=== PATIENT | male | born 1960 | race Asian ===

== ENCOUNTER 2016-12-08 00:05 | Emergency (ER) | payer OTHER ==
[2016-12-08 00:36] VITALS: BP 104/62; PULSE 117; TEMP 98; BMI 21.1
[2016-12-08] MEDS ORDERED: IBUPROFEN 600 MG TABLET (FP) PO ONE (04:06)
[2016-12-08] MEDS ORDERED: IBUPROFEN 400 MG TABLET (FP) PO ONE (04:46)
== END 2016-12-08 00:55 | disposition home or self-care (01) ==
LOC: JER 00:05
DX: S93.401A Sprain of unspecified ligament of right ankle, initial encounter (principal); W01.0XXA Fall on same level from slipping, tripping and stumbling without subsequent striking against object, initial encounter; Y93.89 Activity, other specified; Y92.89 Other specified places as the place of occurrence of the external cause
CPT/HCPCS: 73610-TC-RT; 99281-25

== ENCOUNTER 2022-05-29 08:17 | Inpatient (IN) | payer OTHER ==
[2022-05-29 08:38] VITALS: BMI 21.9
[2022-05-29] MEDS ORDERED: SODIUM CHLORIDE 0.9% 500 ML INFUS.BAG IV ONE ×2 (08:51→12:00)
[2022-05-29] MEDS ORDERED: ONDANSETRON 4 MG/2 ML VIAL IVPUSH ONE (08:51)
[2022-05-29] MEDS ORDERED: FAMOTIDINE 20 MG/50 ML IVPB 20 MG/50 ML MG IVPB ONE ×2 (08:53→09:12)
[2022-05-29] MEDS ORDERED: FOLIC ACID 1 MG TABLET (FP) PO ONE (08:57)
[2022-05-29] MEDS ORDERED: THIAMINE HCL 200 MG/2 ML VIAL IVPB ONE (08:57)
[2022-05-29] MEDS ORDERED: THIAMINE HCL 200 MG/2 ML VIAL ONE (09:12)
[2022-05-29] MEDS ORDERED: ONDANSETRON 4 MG/2 ML VIAL ONE (09:12)
[2022-05-29] MEDS ORDERED: FOLIC ACID 1 MG TABLET (FP) ONE (09:12)
[2022-05-29 09:37] LABS: BASO % 0.4 % (0-2.0); HEMATOCRIT 28.4 % (35.4-49); HEMOGLOBIN 9.6 GM/dL (11.7-16.9); LYMPH % 5.7 % (8-40); MCH 34.1 pg (25.7-33.7); MCHC 33.7 g/dl (32.0-35.9); MEAN CELL VOLUME 101.3 fl (80-96); MEAN PLT VOLUME 8.6 fl (7.5-11.1); MONO % 6.3 % (3.8-10.2); NEUT % 87.6 % (42.8-82.8); PLATELET COUNT 103 10^3/uL (134-434); RBC 2.81 M/mm3 (4.00-5.60); RDW 15.1 % (11.9-15.9); WHITE BLOOD COUNT 11.1 K/mm3 (4.0-10.0)
[2022-05-29 09:41] LABS: VENOUS BASE EXCESS -3.7 mmol/L (-2-2); VENOUS PCO2 41.8 mmHg (38-52); VENOUS PH 7.337 (7.310-7.410)
[2022-05-29] MEDS ORDERED: diazePAM CARPU-JECT 10 MG/2 ML DISP.SYRIN IVPUSH ONE ×2 (10:02→13:50)
[2022-05-29 10:03] LABS: CALCIUM 9.3 mg/dL (8.5-10.1)
[2022-05-29 10:04] LABS: ALBUMIN 3.4 g/dl (3.4-5.0); BLOOD UREA NITROGEN 42.9 mg/dL (7-18)
[2022-05-29 10:06] LABS: CREATININE 1.3 mg/dL (0.55-1.3)
[2022-05-29 10:08] LABS: TOT PROT 7.8 g/dl (6.4-8.2)
[2022-05-29] MEDS ORDERED: diazePAM CARPU-JECT 10 MG/2 ML DISP.SYRIN ONE ×2 (10:34→14:00)
[2022-05-29 13:02] LABS: CALCIUM 8.2 mg/dL (8.5-10.1)
[2022-05-29 13:03] LABS: BLOOD UREA NITROGEN 42.1 mg/dL (7-18)
[2022-05-29 13:06] LABS: CREATININE 1.4 mg/dL (0.55-1.3)
[2022-05-29 13:14] LABS: LACTIC ACID 7.1 mmol/L (0.4-2.0)
[2022-05-29] MEDS ORDERED: SODIUM CHLORIDE 1,000 ML IV STA (13:21)
[2022-05-29] MEDS ORDERED: DEXTROSE 10%-WATER - 1,000 ML IV SCH (13:30)
[2022-05-29 13:56] LABS: VENOUS BASE EXCESS -2.2 mmol/L (-2-2); VENOUS PCO2 37.5 mmHg (38-52); VENOUS PH 7.394 (7.310-7.410)
[2022-05-29] MEDS ORDERED: SODIUM CHLORIDE 1,000 ML IV SCH (14:00)
[2022-05-29 14:15] LABS: CALCIUM 8.6 mg/dL (8.5-10.1)
[2022-05-29 14:16] LABS: BLOOD UREA NITROGEN 42.3 mg/dL (7-18)
[2022-05-29 14:19] LABS: CREATININE 1.1 mg/dL (0.55-1.3)
[2022-05-29 14:28] LABS: LACTIC ACID 3.7 mmol/L (0.4-2.0)
[2022-05-29 16:02] LABS: URINE APPEARANCE CLEAR; URINE BILIRUBIN NEGATIVE (NEGATIVE); URINE COLOR YELLOW; URINE GLUCOSE (UA) 3+ (NEGATIVE); URINE KETONE 2+ (NEGATIVE); URINE LEUK ESTERASE NEGATIVE (NEGATIVE); URINE NITRITE NEGATIVE (NEGATIVE); URINE PROTEIN NEGATIVE (NEGATIVE); URINE UROBILINOGEN 0.2 mg/dL (0.2-1.0)
[2022-05-29] MEDS: chlordiazePOXIDE HCL 25 MG CAPSULE PO SCH ×2 (17:02→22:20)
[2022-05-29] MEDS ORDERED: chlordiazePOXIDE HCL 25 MG CAPSULE PO PRN (18:09)
[2022-05-29] MEDS ORDERED: ONDANSETRON 4 MG/2 ML VIAL IVPUSH PRN (18:18)
[2022-05-29] MEDS: SODIUM CHLORIDE 1,000 ML IV SCH (19:08)
[2022-05-29] MEDS: PANTOPRAZOLE SODIUM 40 MG VIAL IVPUSH SCH (19:09)
[2022-05-29] MEDS ORDERED: ACETAMINOPHEN 1000 MG/100 ML BAG IVPB ONE (21:20)
[2022-05-30] MEDS: chlordiazePOXIDE HCL 25 MG CAPSULE PO SCH ×4 (06:03→22:12)
[2022-05-30] MEDS ORDERED: DEXTROSE 50%-WATER 25 GM/50 ML DISP.SYRIN IVPUSH ONE (06:12)
[2022-05-30] MEDS: METOPROLOL TARTRATE 50 MG TABLET (FP) PO SCH (10:03)
[2022-05-30] MEDS: FOLIC ACID 1 MG TABLET (FP) PO SCH (10:03)
[2022-05-30] MEDS: MULTIVITAMINS (DAILY MVI) TABLET (FP) PO SCH (10:03)
[2022-05-30] MEDS: THIAMINE HCL 200 MG/2 ML VIAL IVPB SCH (10:03)
[2022-05-30] MEDS: PANTOPRAZOLE SODIUM 40 MG VIAL IVPUSH SCH ×2 (10:04→21:47)
[2022-05-30] MEDS ORDERED: DEXTROSE 50%-WATER - 25 GM/50 ML VIAL IVPUSH PRN (10:11)
[2022-05-30 10:40] LABS: BASO % 0.5 % (0-2.0); EOS % 1.3 % (0-4.5); HEMATOCRIT 22.1 % (35.4-49); HEMOGLOBIN 7.5 GM/dL (11.7-16.9); LYMPH % 15.5 % (8-40); MCH 34.3 pg (25.7-33.7); MCHC 33.9 g/dl (32.0-35.9); MEAN CELL VOLUME 101.2 fl (80-96); MONO % 8.9 % (3.8-10.2); NEUT % 73.8 % (42.8-82.8); PLATELET COUNT 61 10^3/uL (134-434); RBC 2.19 M/mm3 (4.00-5.60); RDW 15.1 % (11.9-15.9); WHITE BLOOD COUNT 8.3 K/mm3 (4.0-10.0)
[2022-05-30 11:14] LABS: BLOOD UREA NITROGEN 37.9 mg/dL (7-18); CALCIUM 7.9 mg/dL (8.5-10.1)
[2022-05-30 11:19] LABS: BILIRUBIN,TOTAL 1.5 mg/dL (0.2-1); TOT PROT 5.9 g/dl (6.4-8.2)
[2022-05-30 11:40] LABS: ALBUMIN 2.7 g/dl (3.4-5.0)
[2022-05-30] MEDS: SODIUM CHLORIDE 1,000 ML IV SCH ×2 (13:24→22:08)
[2022-05-30] MEDS: ACETAMINOPHEN 1000 MG/100 ML BAG IVPB PRN (14:26)
[2022-05-31] MEDS: chlordiazePOXIDE HCL 25 MG CAPSULE PO SCH ×4 (04:52→22:10)
[2022-05-31 08:33] LABS: HEMATOCRIT 21.8 % (35.4-49); HEMOGLOBIN 7.5 GM/dL (11.7-16.9); MCH 34.4 pg (25.7-33.7); MCHC 34.2 g/dl (32.0-35.9); MEAN CELL VOLUME 100.7 fl (80-96); MEAN PLT VOLUME 8.7 fl (7.5-11.1); PLATELET COUNT 61 10^3/uL (134-434); RBC 2.16 M/mm3 (4.00-5.60); RDW 14.7 % (11.9-15.9); WHITE BLOOD COUNT 6.4 K/mm3 (4.0-10.0)
[2022-05-31 08:52] LABS: CALCIUM 7.3 mg/dL (8.5-10.1)
[2022-05-31 08:53] LABS: ALBUMIN 2.5 g/dl (3.4-5.0); BLOOD UREA NITROGEN 21.7 mg/dL (7-18)
[2022-05-31 08:58] LABS: BILIRUBIN,TOTAL 1.4 mg/dL (0.2-1); TOT PROT 5.7 g/dl (6.4-8.2)
[2022-05-31 08:59] LABS: CREATININE 0.9 mg/dL (0.55-1.3)
[2022-05-31] MEDS: METOPROLOL TARTRATE 50 MG TABLET (FP) PO SCH (09:24)
[2022-05-31] MEDS: FOLIC ACID 1 MG TABLET (FP) PO SCH (09:24)
[2022-05-31] MEDS: MULTIVITAMINS (DAILY MVI) TABLET (FP) PO SCH (09:24)
[2022-05-31] MEDS: PANTOPRAZOLE SODIUM 40 MG VIAL IVPUSH SCH ×2 (09:25→22:11)
[2022-05-31] MEDS: THIAMINE HCL 200 MG/2 ML VIAL IVPB SCH (09:25)
[2022-05-31] MEDS: ACETAMINOPHEN 1000 MG/100 ML BAG IVPB PRN (11:37)
[2022-05-31] MEDS: SODIUM CHLORIDE 1,000 ML IV SCH ×2 (14:14→19:04)
[2022-05-31 17:45] LABS: INR 1.38 (0.83-1.09)
[2022-05-31] MEDS: HEPARIN NA (PORCINE) 5,000 UNITS/ML 1ML VIAL SQ SCH (22:11)
[2022-06-01] MEDS ORDERED: chlordiazePOXIDE HCL 10 MG CAPSULE PO PRN
[2022-06-01] MEDS: chlordiazePOXIDE HCL 10 MG CAPSULE PO SCH ×4 (05:43→22:23)
[2022-06-01] MEDS: INSULIN SLIDING SCALE (NOVOLOG) 1 VIAL SQ SCH ×2 (06:31→16:07)
[2022-06-01 08:16] LABS: BASO % 0.6 % (0-2.0); EOS % 3.9 % (0-4.5); HEMATOCRIT 21.9 % (35.4-49); HEMOGLOBIN 7.6 GM/dL (11.7-16.9); LYMPH % 17.7 % (8-40); MCH 34.6 pg (25.7-33.7); MCHC 34.7 g/dl (32.0-35.9); MEAN CELL VOLUME 99.8 fl (80-96); MEAN PLT VOLUME 8.1 fl (7.5-11.1); MONO % 12.1 % (3.8-10.2); NEUT % 65.7 % (42.8-82.8); PLATELET COUNT 75 10^3/uL (134-434); RBC 2.19 M/mm3 (4.00-5.60); RDW 14.8 % (11.9-15.9); WHITE BLOOD COUNT 6.1 K/mm3 (4.0-10.0)
[2022-06-01 08:32] LABS: CALCIUM 7.2 mg/dL (8.5-10.1)
[2022-06-01 08:34] LABS: ALBUMIN 2.6 g/dl (3.4-5.0); BLOOD UREA NITROGEN 10.7 mg/dL (7-18)
[2022-06-01 08:36] LABS: CREATININE 0.8 mg/dL (0.55-1.3)
[2022-06-01 08:38] LABS: BILIRUBIN,TOTAL 1.3 mg/dL (0.2-1); TOT PROT 5.9 g/dl (6.4-8.2)
[2022-06-01] MEDS: THIAMINE HCL 200 MG/2 ML VIAL IVPB SCH (10:20)
[2022-06-01] MEDS: HEPARIN NA (PORCINE) 5,000 UNITS/ML 1ML VIAL SQ SCH ×2 (10:21→22:23)
[2022-06-01] MEDS: FOLIC ACID 1 MG TABLET (FP) PO SCH (10:21)
[2022-06-01] MEDS: MULTIVITAMINS (DAILY MVI) TABLET (FP) PO SCH (10:21)
[2022-06-01] MEDS: PANTOPRAZOLE SODIUM 40 MG VIAL IVPUSH SCH ×2 (10:21→22:23)
[2022-06-01] MEDS: METOPROLOL TARTRATE 50 MG TABLET (FP) PO SCH (10:22)
[2022-06-01] MEDS ORDERED: POTASSIUM CHLORIDE ORAL LIQUID 20 MEQ/15 ML PO ONE (11:48)
[2022-06-01] MEDS ORDERED: AZITHROMYCIN 250 MG TABLET PO SCH (12:00)
[2022-06-01] MEDS: CEFTRIAXONE 1 GM in DEXTROSE 5%-WATER - 50 ML IVPB SCH (12:21)
[2022-06-01] MEDS: SODIUM CHLORIDE 1,000 ML IV SCH ×2 (18:43→22:24)
[2022-06-02] MEDS: chlordiazePOXIDE HCL 10 MG CAPSULE PO SCH ×2 (05:29→16:38)
[2022-06-02] MEDS: INSULIN SLIDING SCALE (NOVOLOG) 1 VIAL SQ SCH ×2 (06:07→16:39)
[2022-06-02 07:20] LABS: BASO % 0.7 % (0-2.0); EOS % 3.9 % (0-4.5); HEMATOCRIT 21.2 % (35.4-49); HEMOGLOBIN 7.5 GM/dL (11.7-16.9); LYMPH % 17.3 % (8-40); MCH 35.4 pg (25.7-33.7); MCHC 35.1 g/dl (32.0-35.9); MEAN CELL VOLUME 100.6 fl (80-96); MEAN PLT VOLUME 8.5 fl (7.5-11.1); MONO % 13.6 % (3.8-10.2); NEUT % 64.5 % (42.8-82.8); PLATELET COUNT 85 10^3/uL (134-434); RBC 2.11 M/mm3 (4.00-5.60); RDW 14.9 % (11.9-15.9); WHITE BLOOD COUNT 6.7 K/mm3 (4.0-10.0)
[2022-06-02 08:06] LABS: CARCINOEMBRYONIC ANTIGEN 5.6 ng/mL (0.0-4.7)
[2022-06-02 09:10] LABS: CALCIUM 7.2 mg/dL (8.5-10.1)
[2022-06-02 09:12] LABS: ALBUMIN 2.4 g/dl (3.4-5.0); BLOOD UREA NITROGEN 9.7 mg/dL (7-18)
[2022-06-02 09:15] LABS: TOT PROT 5.6 g/dl (6.4-8.2)
[2022-06-02 09:17] LABS: BILIRUBIN,TOTAL 0.8 mg/dL (0.2-1)
[2022-06-02] MEDS: PANTOPRAZOLE SODIUM 40 MG VIAL IVPUSH SCH ×2 (11:02→22:55)
[2022-06-02] MEDS: METOPROLOL TARTRATE 50 MG TABLET (FP) PO SCH (11:02)
[2022-06-02] MEDS: HEPARIN NA (PORCINE) 5,000 UNITS/ML 1ML VIAL SQ SCH ×2 (11:02→22:55)
[2022-06-02] MEDS: CEFTRIAXONE 1 GM in DEXTROSE 5%-WATER - 50 ML IVPB SCH (11:03)
[2022-06-02] MEDS: FOLIC ACID 1 MG TABLET (FP) PO SCH (11:03)
[2022-06-02] MEDS: MULTIVITAMINS (DAILY MVI) TABLET (FP) PO SCH (11:03)
[2022-06-02] MEDS: THIAMINE HCL 200 MG/2 ML VIAL IVPB SCH (11:04)
[2022-06-02] MEDS: SODIUM PHOSPHATE/NA BIPHOS 133 ML ENEMA RC SCH ×2 (18:23→23:04)
[2022-06-02 18:31] VITALS: RESP 18
[2022-06-02] MEDS: SODIUM CHLORIDE 1,000 ML IV SCH (23:04)
[2022-06-03] MEDS ORDERED: chlordiazePOXIDE HCL 10 MG CAPSULE PO ONE (05:00)
[2022-06-03 05:53] VITALS: BP 129/63; PULSE 93; TEMP 99.1
[2022-06-03] MEDS: INSULIN SLIDING SCALE (NOVOLOG) 1 VIAL SQ SCH (06:00)
[2022-06-03] MEDS: SODIUM CHLORIDE 1,000 ML IV SCH (08:12)
[2022-06-03 08:43] LABS: BASO % 0.6 % (0-2.0); EOS % 4.1 % (0-4.5); HEMATOCRIT 23.3 % (35.4-49); HEMOGLOBIN 8.1 GM/dL (11.7-16.9); LYMPH % 16.9 % (8-40); MCHC 34.8 g/dl (32.0-35.9); MEAN CELL VOLUME 100.6 fl (80-96); MEAN PLT VOLUME 8.5 fl (7.5-11.1); MONO % 16.2 % (3.8-10.2); NEUT % 62.2 % (42.8-82.8); PLATELET COUNT 97 10^3/uL (134-434); RBC 2.32 M/mm3 (4.00-5.60); RDW 15.4 % (11.9-15.9); WHITE BLOOD COUNT 7.5 K/mm3 (4.0-10.0)
[2022-06-03] MEDS: LIPASE/PROTEASE/AMYLASE 36,000 UNIT CAPSULE PO SCH ×2 (09:09→11:51)
[2022-06-03 09:40] LABS: CALCIUM 7.1 mg/dL (8.5-10.1)
[2022-06-03 09:41] LABS: ALBUMIN 2.6 g/dl (3.4-5.0); BLOOD UREA NITROGEN 6.3 mg/dL (7-18)
[2022-06-03 09:46] LABS: BILIRUBIN,TOTAL 0.8 mg/dL (0.2-1); TOT PROT 5.9 g/dl (6.4-8.2)
[2022-06-03] MEDS: PANTOPRAZOLE SODIUM 40 MG VIAL IVPUSH SCH (10:16)
[2022-06-03] MEDS: CEFTRIAXONE 1 GM in DEXTROSE 5%-WATER - 50 ML IVPB SCH (10:18)
[2022-06-03] MEDS: FOLIC ACID 1 MG TABLET (FP) PO SCH (10:22)
[2022-06-03] MEDS: HEPARIN NA (PORCINE) 5,000 UNITS/ML 1ML VIAL SQ SCH (10:23)
[2022-06-03] MEDS: MULTIVITAMINS (DAILY MVI) TABLET (FP) PO SCH (10:23)
[2022-06-03] MEDS: METOPROLOL TARTRATE 50 MG TABLET (FP) PO SCH (10:23)
[2022-06-03] MEDS: THIAMINE HCL 200 MG/2 ML VIAL IVPB SCH (10:56)
== END 2022-06-03 15:08 | disposition home or self-care (01) | DRG 896 ==
LOC: JER 08:17 → JERBED 15:40 → J4S 17:33
PROVIDERS: ADMIT Internal Medicine; ATTEND Internal Medicine
DX: F10.230 Alcohol dependence with withdrawal, uncomplicated (principal); J69.0 Pneumonitis due to inhalation of food and vomit; K85.90 Acute pancreatitis without necrosis or infection, unspecified; E87.20 Acidosis, unspecified; N17.9 Acute kidney failure, unspecified; K92.2 Gastrointestinal hemorrhage, unspecified; E87.29 Other acidosis; E11.9 Type 2 diabetes mellitus without complications; I10 Essential (primary) hypertension; Z79.4 Long term (current) use of insulin; R11.2 Nausea with vomiting, unspecified; D64.9 Anemia, unspecified; K70.9 Alcoholic liver disease, unspecified; K80.20 Calculus of gallbladder without cholecystitis without obstruction
CPT/HCPCS: 0241U-QW; 36415; 71045-TC-FY; 71260-TC; 74176-TC; 76705-TC; 80048; 80053; 81003; 82010; 82105; 82272; 82378; 82607; 82746; 82803; 82962; 83605; 83690; 84153; 84484; 85025; 85027; 85610; 86140; 86301; 87086; 93005; 93010; 97116-GP; 97161-GP; 99291; J1644; Q9967